=== PATIENT | female | born 1995 | race Caucasian/White ===

== ENCOUNTER → 2017-04-16 21:11 | Observation (INO) ==
--- NOTE | 2017-04-16 21:12 | OB/GYN Progress Note ---
Date of Encounter: 04/16/17 Time of Encounter: 21:09 - Assessment and Plan (1) 22 weeks gestation of Current Visit: Yes Status: Acute FHT reassuring (2) Round ligament pain Current Visit: Yes Status: Acute DIscharge home with precautions. Pt to follow up in office as scheduled or sooner if symptoms worsen. Comfort measures discussed at length. Subjective - Subjective Interval history: 22 year-old presenting at 22w6d gestation with c/o sharp, intermittent, lower abdominal pain that is worse on the right side than the left. Pt reports pain is sharp and is made worse with certain movements and with sneezing. She also reports some dysuria but was seen in urgent care today for it and her urine was normal. No other complaints including: fever, chills, flank pain, contractions, LOF, VB. Antepartum ROS: movement normal, no loss of fluid, no vaginal bleeding, no contractions Objective - Vital Signs Vital Signs: Intake and Output 04/16/17 04/16/17 04/16/17 07:59 15:59 23:59 Other: Weight 92 kg Patient Weight 04/16/17 23:59 Weight 92 kg - Exam FHR: auscultation normal Abdomen: Present: soft, gravid, tenderness (TTP in bilateral LQ over round ligaments, R>L) Uterus: Present: normal. Absent: tenderness (no fundal or suprapubic tenderness )
[2017-04-16 21:22] LABS: Amphetamine Screen,Urine Negative ng/mL (Cutoff=1000); Barbiturate Screen,Urine Negative ng/mL (Cutoff=200); Benzodiazepines Screen,Urine Negative ng/mL (Cutoff=200); Cannabinoid Screen,Urine Positive ng/mL (Cutoff = 50); Cocaine Screen,Urine Negative ng/mL (Cutoff= 300); Opiate Screen,Urine Negative ng/mL (Cutoff=300); Phencyclidine Screen,Urine Negative ng/mL (Cutoff=25)
== END | disposition home or self-care (01) ==
LOC: 1NENULAB
PROVIDERS: ADMIT Obstetrics & Gynecology; ATTEND Obstetrics & Gynecology

== ENCOUNTER → 2017-06-18 15:05 | Observation (INO) ==
--- NOTE | 2017-06-18 13:19 | OB/GYN Progress Note ---
Date of Encounter: 06/18/17 Time of Encounter: 13:15 - Assessment and Plan (1) 31 weeks gestation of Current Visit: Yes Status: Acute FHR 140-150's. Positive accels, no decels. Positive FM reported by patient. Negative ferning on slide review. No obvious fluid coming from cervix on pelvic exam. (2) Vaginal discharge during Current Visit: Yes Status: Acute Pelvic exam complete. Vaginosis swab sent to lab with results pending. Patient has appointment with Dr. Downing in the morning and will review results at that time. Patient agrees with plan. Qualifiers: Trimester: third trimester Qualified Code(s): O26.893 - Other specified related conditions, third trimester; N89.8 - Other specified noninflammatory disorders of vagina; N89.8 - Other specified noninflammatory disorders of vagina Subjective - Subjective Principal diagnosis: Loss of fluid Interval history: Patient is 22F at 31+6 with past medical history of well controlled gestational diabetes presents for c/o loss of fluid. Patient sees Dr. Downing. Patient states that over the past 2 weeks she has been having intermittent amounts of clear spotting in her underwear and today prior to arrival she had a gush of fluid that soaked her underpants but did not go through to her pants. Patient is positive for movement. States she has a history of vinh dey contractions since early on in her . Denies any abdominal pain, dysuria, hematuria, vaginal bleeding or discharge. Blood type is B+. Antepartum ROS: new complaints, loss of fluid, movement normal, no vaginal bleeding, no contractions Objective - Vital Signs Vital Signs: Intake and Output 06/17/17 06/18/17 06/18/17 23:59 07:59 15:59 Other: Weight 96.6 kg Patient Weight 06/18/17 23:59 Weight 96.6 kg - Exam FHR: auscultation normal, category 1 FHR comments: 140-150s FHR Auscultation: bilateral: normal Abdomen: Present: normal appearance, soft, gravid Uterus: Present: normal, firm. Absent: tenderness Cervical dilation: None Comments: Pelvic exam revealed scant milky white discarge. Normal appearing cervix, closed. No lesions.
[2017-06-18 13:28] LABS: Bilirubin,Urine Negative (Negative); Blood,Urine Negative (Negative); Clarity,Urine Cloudy (Clear); Color,Urine Yellow (Yellow); Glucose,Urine (UA) Normal (Normal); Ketones,Urine Negative (Negative); Leukocyte Esterase,Urine Small (Negative); Nitrite,Urine Negative (Negative); Protein,Urine Negative (Neg-Trace); Specific Gravity,Urine 1.014 (1.010-1.025); Urobilinogen,Urine Normal (Normal)
[2017-06-18 13:31] LABS: Bacteria,Urine None Seen per hpf (None-Few); Hyaline Casts,Urine None Seen per lpf (None-Few); RBC,Urine 0-3 per hpf (0-3); Squamous Epithelial Cell,Urine Many per lpf (None-Few)
[2017-06-18 13:48] LABS: Amphetamine Screen,Urine Negative ng/mL (Cutoff=1000); Barbiturate Screen,Urine Negative ng/mL (Cutoff=200); Benzodiazepines Screen,Urine Negative ng/mL (Cutoff=200); Cannabinoid Screen,Urine Negative ng/mL (Cutoff = 50); Cocaine Screen,Urine Negative ng/mL (Cutoff= 300); Opiate Screen,Urine Negative ng/mL (Cutoff=300); Phencyclidine Screen,Urine Negative ng/mL (Cutoff=25)
--- NOTE | 2017-06-18 14:52 | Discharge Summary ---
Date of Encounter: 06/18/17 Time of Encounter: 14:52 - Discharge Diagnosis (1) 31 weeks gestation of Priority: Primary Status: Acute Comments: admitted for observation (2) Vaginal discharge during Priority: Secondary Status: Acute Comments: Will call patient with results of vaginosis panel. Qualifiers: Trimester: third trimester Qualified Code(s): O26.893 - Other specified related conditions, third trimester; N89.8 - Other specified noninflammatory disorders of vagina; N89.8 - Other specified noninflammatory disorders of vagina - Discharge Medications Home Medications: Citalopram [CeleXA] 20 mg PO DAILY 10/16/16 [History] Tablet 1 tab PO DAILY 04/16/17 [History] Allergies/Adverse Reactions: 3 Allergy/AdvReac Type Severity Reaction Status Date / Time No Known Allergies Allergy Verified 04/16/17 21:01 Data Procedures and tests throughout hospitalization: Laboratory Tests 06/18/17 06/18/17 13:15 13:15 Urine Color Yellow Urine Clarity Cloudy A Urine pH 7.0 Ur Specific [place] 1.014 Urine Protein Negative Urine Glucose (UA) Normal Urine Ketones Negative Urine Blood Negative Urine Nitrite Negative Urine Bilirubin Negative Urine Urobilinogen Normal Ur Leukocyte Esterase Small H Urine Microscopic RBC 0-3 Urine Microscopic WBC 5-15 H Ur Squamous Epith Cells Many H Urine Bacteria None Seen Hyaline Casts None Seen Ur Culture Indicated? YES A Urine Opiates Screen Negative Ur Barbiturates Screen Negative Ur Phencyclidine Scrn Negative Ur Amphetamines Screen Negative U Benzodiazepines Scrn Negative Urine Cocaine Screen Negative U Marijuana (THC) Screen Negative Labs on day of discharge: Labs from last 24 hours 06/18/17 06/18/17 13:15 13:15 Urine Color Yellow Urine Clarity Cloudy A Urine pH 7.0 Ur Specific [place] 1.014 Urine Protein Negative Urine Glucose (UA) Normal Urine Ketones Negative Urine Blood Negative Urine Nitrite Negative Urine Bilirubin Negative Urine Urobilinogen Normal Ur Leukocyte Esterase Small H Urine Microscopic RBC 0-3 Urine Microscopic WBC 5-15 H Ur Squamous Epith Cells Many H Urine Bacteria None Seen Hyaline Casts None Seen Ur Culture Indicated? YES A Urine Opiates Screen Negative Ur Barbiturates Screen Negative Ur Phencyclidine Scrn Negative Ur Amphetamines Screen Negative U Benzodiazepines Scrn Negative Urine Cocaine Screen Negative U Marijuana (THC) Screen Negative Date of admission: 06/18/17 12:52 Primary care physician: PCP NONE - Patient Status Disposition: Home, Self-Care - Discharge Instructions Follow Up With: NONE,PCP [Primary Care Provider] - Josafat Downing MD [Partnered Physician] - - Diet and Activity Activity: increase activity as tolerated Diet: regular diet Hospital Course STAVE CUTTER Time Attestation: Total time spent providing and/or coordinating discharge services: Time Spent: Less than 30 minutes - VTE Reasons for not Prescribing Prophylaxis: Treatment not Indicated - Low risk for VTE - Attending Attestation I examined this patient and my medical decision-making was reviewed with the Resident Physician. I agree with the documented findings, disposition and treatment plan as described except to the extent set forth below. NENA Barton
[2017-06-18 15:02] LABS: Candida DNA Not Detected (Not Detect); Gardnerella DNA Not Detected (Not Detect); Trichomonas DNA Not Detected (Not Detect)
== END | disposition home or self-care (01) ==
LOC: 1NENULAB
PROVIDERS: ADMIT Obstetrics & Gynecology; ATTEND Obstetrics & Gynecology

== ENCOUNTER 2017-08-08 10:09 | Inpatient (IN) ==
[2017-08-08] MEDS ORDERED: Famotidine 20 MG/2 ML VIAL IVP ONE (10:40)
[2017-08-08] MEDS ORDERED: Ringers Solution, Lactated 1,000 ML IVC ONE (10:40)
[2017-08-08] MEDS ORDERED: Metoclopramide 10 MG/2 ML VIAL IVP ONE (10:40)
[2017-08-08] MEDS ORDERED: CeFAZolin Premix DUPLEX 2,000 MG/50 ML BAG IVPB ONE (10:40)
[2017-08-08] MEDS ORDERED: Ringers Solution, Lactated 1,000 ML ONE (10:44)
[2017-08-08] MEDS ORDERED: Ringers Solution, Lactated 1,000 ML IVC SCH ×2 (10:45→12:00)
[2017-08-08 11:04] LABS: Basophils % 0.3 %; Eosinophils # 0.1 K/mcL (0.0-0.6); Hematocrit 36.5 % (35.3-44.9); Hemoglobin 12.5 g/dL (11.5-15.4); Immature Granulocytes % 1.1 % (0-4); Lymphocytes # 1.3 K/mcL (0.6-4.6); Lymphocytes % 16.8 %; Mean Corpuscular HGB Conc 34.2 g/dL (31.6-35.5); Mean Corpuscular Hemoglobin 30.1 pg (28.0-33.3); Mean Platelet Volume 10.3 fL (9.4-12.4); Monocytes # 0.7 K/mcL (0.0-1.3); Monocytes % 9.2 %; Neutrophils # 5.7 K/mcL (1.6-8.9); Platelet Count 226 K/mcL (140-400); Red Blood Count 4.15 M/mcL (3.82-4.97); Red Cell Distribution Width 15.4 % (11.5-14.5); Segmented Neutrophils % 71.6 %
[2017-08-08 11:11] LABS: Amphetamine Screen,Urine Negative ng/mL (Cutoff=1000); Barbiturate Screen,Urine Negative ng/mL (Cutoff=200); Benzodiazepines Screen,Urine Negative ng/mL (Cutoff=200); Cannabinoid Screen,Urine Negative ng/mL (Cutoff = 50); Cocaine Screen,Urine Negative ng/mL (Cutoff= 300); Opiate Screen,Urine Negative ng/mL (Cutoff=300); Phencyclidine Screen,Urine Negative ng/mL (Cutoff=25)
--- NOTE | 2017-08-08 11:23 | OB/GYN History & Physical ---
Date of Encounter: 08/09/17 Time of Encounter: 11:18 Assessment and Plan (1) 39 weeks gestation of Current visit: Yes Status: Acute Patient's here for repeat . 39 weeks 1 day . Patient has been consented. (2) Marijuana use Current visit: Yes Status: Acute Drug testing completed on 04/01 showed positive marijuana. (3) Gestational diabetes Current visit: Yes Status: Acute Patient's glucose tolerance test abnormal. Diet controlled at home. She states normal glucose levels pre-and postprandial Qualifiers: Gestational diabetes mellitus control: diet-controlled Trimester: third trimester Qualified Code(s): O24.410 - Gestational diabetes mellitus in , diet controlled History of Present Illness HPI: Ms. Ignacio is a 22 year old female presenting to labor and delivery for scheduled repeat . Patient is currently 39 weeks and 1 day. She has had gestational diabetes at this and also marijuana usage. Patient states her diabetes is diet-controlled. Average morning glucose level in the mid 80s. Postprandial in the 90s unless she has sugary juices than it is elevated. Patient denies any headache, dizziness, chest pain or shortness of breath. Denies any recent fevers. Denies any vaginal discharge or vaginal bleeding. She states her first was completed due to emiliano breech presentation. Patient is group b strep negative. Patient is HIV and Treponema negative. Rubella immune. Patient's blood type is B+. Past Med Surg Social Fam HX - Past Medical History Medical history: no medical history Psychiatric history: anxiety, depression - Past Surgical History Surgical History: , other - Social History Smoking Status: Never smoker Smokeless Tobacco Status: No Alcohol use: none Drug use: none - Family History Mother Name: Ashly Age: 54 Family Member Ethnicity: Non- Living Status: Still Living Hx Family Cardiac Disorders: Yes (HTN) Hx Family Respiratory Disorders: No Hx Family Cancer: No Hx Family GI Disorders: No Hx Family Endocrine Disorder: Yes (Diabetes Type 2) Hx Family Neuromuscular Disorders: No Hx Family Neurologic Disorders: No Hx Family HEENT Disorders: No Hx Family Autoimmune Disorders: No Obstetrical History - Pregnancies : 2 Para: 1 Term: 1 : 0 Ab's: 0 Livin Medications and Allergies Citalopram [CeleXA] 20 mg PO DAILY 10/16/16 [History] Tablet 1 tab PO DAILY 04/16/17 [History] 3 Allergy/AdvReac Type Severity Reaction Status Date / Time No Known Allergies Allergy Verified 04/16/17 21:01 Review of System OB All systems PM: reviewed and no additional remarkable complaints except as stated Exam - Constitutional Constitutional: well developed, well nourished, no acute distress, obese - HEENT HEENT: Normocephaly, Mucus Membranes Moist - Neck Neck exam: normal inspection - Lungs Respiratory exam: CTAB - Cardiovascular Cardiovascular exam: RRR - Abdomen Abdomen: Present: bowel sounds normal, gravid, non tender - Extremities Extremities exam: normal inspection - Uterus Uterus exam: Present: normal contour Results Result Diagrams: 08/08/17 10:40 Abnormal lab results RDW 15.4 % (11.5-14.5) H 08/08/17 10:40 All other labs normal. - VTE Reasons for not Prescribing Prophylaxis: Treatment not Indicated - Low risk for VTE
--- NOTE | 2017-08-08 11:59 | Anesthesia Evaluation PreOp ---
Date of Encounter: 08/08/17 Time of Encounter: 11:56 - Past History Planned Operation: repeat csection Cardiac History: Denies any Significant Hx Pulmonary History: Denies Any Significant HX PSYCHIATRY PHYSICIAN History: Denies Any Significant HX Other Medical History: Diabetes Type II (gestational diabetes, diet controlled) , GERD, Other (anxiety, depression) Anesthesia History: No Prior Anesthetic Complications (previous csection, breast lumpectomy), Past Anesthesia : Yes Alcohol Use: none Drug use: none Medications and Allergies Citalopram [CeleXA] 20 mg PO DAILY 10/16/16 [History] Tablet 1 tab PO DAILY 04/16/17 [History] 3 Allergy/AdvReac Type Severity Reaction Status Date / Time No Known Allergies Allergy Verified 04/16/17 21:01 - Meds/Allergy Pre-op Review Medications Reviewed: Yes Allergies Reviewed: Yes Beta Blockers on Current Med List: No Anesthesia Results - Labs 08/08/17 10:40 Anesthesia Exam BP 129/77 P 123 R 16 T 97.0 Height: 5'1" Weight: 101.7kg NPO (# of Hours): 14 Pain Scale: 0 Pain Scale Used: Numeric (1 - 10) - HEENT Pupil (Motor): Pupils equal Mallampati: II Teeth: Normal Oral Opening: Greater than 3 - PSYCHIATRY PHYSICIAN LOC: Oriented PSYCHIATRY PHYSICIAN Motor: Normal RUE, Normal LUE, Normal RLE, Normal LLE, Normal Face PSYCHIATRY PHYSICIAN Sensory: Normal: RUE, LUE, RLE, LLE, Face - Cardiac Rhythm: Regular Murmur: None JVD: No Carotid Bruit: No - Pulmonary Breath Sounds: bilateral Clear Respiratory Effort: Symmetrical Anesthesia Assess/Plan ASA Score: 2 Modified Perla Scale for Level of Consciousness: Cooperative, oriented, and tranquil Anesthetic Plan: Regional Autologous Blood: No Monitoring Plan: Standard Monitors Recovery Plan: PACU
[2017-08-08] MEDS ORDERED: *HR* HYDROmorphone (PF) 1 MG/ML SYRINGE IVP PRN (12:00)
[2017-08-08] MEDS ORDERED: Dexamethasone 4 MG/ML VIAL IVP ONE (12:00)
[2017-08-08] MEDS ORDERED: *HR* Meperidine 25 MG/ML SYRINGE IVP PRN (12:00)
[2017-08-08] MEDS ORDERED: Ondansetron 4 MG/2 ML VIAL IVP ONE (12:00)
[2017-08-08] MEDS ORDERED: Morphine Sulfate/PF 5mg/10mL Vial ONE (12:03)
[2017-08-08] MEDS ORDERED: *HR* Oxytocin 10 UNIT/ML VIAL IM ONE (12:04)
[2017-08-08] MEDS ORDERED: Ondansetron 4 MG/2 ML VIAL ONE (12:04)
[2017-08-08] MEDS ORDERED: Dexamethasone 4 MG/ML VIAL ONE (12:04)
[2017-08-08] MEDS ORDERED: EPHEDrine 50 MG/ML VIAL ONE (12:27)
--- NOTE | 2017-08-08 12:54 | Anesthesia Procedures ---
Date of Encounter: 08/08/17 Time of Encounter: 12:19 Procedures: Anesthesia - Epidural/Spinal Patient ID/Chart reviewed: Yes Patient examined: Yes OB Eval: Gestational age: 39 OB Eval: : 2 OB Eval: Hx Para: 1 Consent Obtained: Yes Supplemental Oxygen: None/Room Air Site Prep: Aseptic Technique, Sterile prep and drape, Povidone-Iodine 1% Patient position: upright Local Anesthetic: Lidocaine 1% Amount of Local Anesthetic used: 3 Interspace Used: L3-L4 Loss of Resistance (THUY): No Blood: No CSF: Yes Paresthesia: No Spinal Needle Gauge: 25 Spinal Dose: Bupivicaine 0.75% 1.4ml with morphine 250mcg Procedure: Intrathecal dose administered 1st pass in upright position without any immediate noted complications. VSS Vitals + FHT's: See anesthesia record
[2017-08-08] MEDS ORDERED: Oxytocin 20 units/ LR 1000 mL 20 UNIT/1,000 ML BAG IVC ONE (13:37)
[2017-08-08] MEDS ORDERED: Simethicone 80 MG TAB.CHEW PO PRN (13:38)
[2017-08-08] MEDS ORDERED: Sennosides 8.6 MG TABLET PO PRN (13:38)
[2017-08-08] MEDS ORDERED: Metoclopramide 10 MG/2 ML VIAL IVP PRN (13:38)
[2017-08-08] MEDS ORDERED: Ondansetron 4 MG/2 ML VIAL IVP PRN (13:38)
--- NOTE | 2017-08-08 13:43 | OB/GYN Procedure Note ---
<Beena Morris - Last Filed: 08/08/17 13:41> Section - Date of procedure: 08/08/17 Preop diagnosis: desires repeat Post-op diagnosis: same Procedure: section, repeat low transverse Surgeon: Josafat Downing Estimated blood loss (cc): 1,000 Was there an practice assistant present: Yes Tablet Tester: Beena Morris Anesthesiologist: Salomón Marinelli Anesthesia Type: Spinal section complications: none Disposition: Post floor Specimens: Placenta - (s) Infant A Delivery Date: 08/08/17 Infant Delivery Time: 12:41 Presentation: vertex Position: ASHLEE Gender: Female Viability: Viable Pounds: 8 Ounces: 8 Gram Weight: 3.85 kg at 1 minute: 7 at 5 minutes: 9 Shoulder Dystocia: not encountered Placenta: complete extraction <Josafat Downing - Last Filed: 08/09/17 04:59> Section - Narrative Narrative: Patient was taken to the operating room. After satisfactory anesthesia was achieved, patient was placed in supine position, Simons catheter inserted, prepped and draped in usual manner. After appropriate timeout was obtained, the abdomen was entered through standard Maylard incision. The Manuela retractor was placed. The peritoneum overlying the lower uterine segment was incised in the U-shaped fashion. The uterine cavity was entered sharply and extended laterally. Membranes ruptured yielding clear fluid. With fundal pressure, the head was delivered. The remainder of the infant was delivered. The umbilical cord was double clamped and cut and infant was handed to nursery staff for further evaluation. Placenta was removed. Uterus closed in a single layer using 0 Monocryl. After assurance of hemostasis, the abdomen was closed in fashion using 0 Vicryl fascia and 3-0 Monocryl in the skin. Sterile dressing was applied. Patient did well and was taken to recovery room in satisfactory condition. Counts were correct.
[2017-08-08] MEDS ORDERED: *HR* Meperidine 50 MG/ML SYRINGE IVP PRN (13:45)
[2017-08-08] MEDS: Oxytocin 20 units/ LR 1000 mL 20 UNIT/1,000 ML BAG IVC SCH (13:51)
--- NOTE | 2017-08-08 14:50 | Anesthesia Evaluation Post Op ---
Date of Encounter: 08/08/17 Time of Encounter: 14:49 - Vital Signs Vital Signs: BP 154/97 P 115 R 16 T 98.7 spo2 97 - Lungs Lungs: Clear Ascult./Percussion - Airway Airway: Non-obstructed - Cardiovascular Regular Rate - Mental Status Mental Status: Alert & Oriented, Answers Appropriately - Pain Pain Scale: 0 Pain Scale used: Numeric (1 - 10) - Nausea Vomiting Nausea Vomiting: Not Present - Hydration Hydration: Ice chips, Simons catheter - Discharge PostOp Status: Transfer Patient to floor
[2017-08-09] MEDS: Oxytocin 20 units/ LR 1000 mL 20 UNIT/1,000 ML BAG IVC SCH (00:03)
[2017-08-09] MEDS: *HR* OxyCODONE/APAP 5/325 TABLET PO PRN ×3 (00:04→19:45)
[2017-08-09 05:07] LABS: Basophils % 0.4 %; Eosinophils # 0.1 K/mcL (0.0-0.6); Eosinophils % 0.7 %; Hematocrit 30.5 % (35.3-44.9); Immature Granulocytes % 0.8 % (0-4); Lymphocytes # 1.8 K/mcL (0.6-4.6); Lymphocytes % 20.7 %; Mean Corpuscular HGB Conc 32.5 g/dL (31.6-35.5); Mean Corpuscular Hemoglobin 29.6 pg (28.0-33.3); Mean Platelet Volume 10.1 fL (9.4-12.4); Monocytes # 0.7 K/mcL (0.0-1.3); Monocytes % 8.5 %; Neutrophils # 5.9 K/mcL (1.6-8.9); Platelet Count 198 K/mcL (140-400); Red Blood Count 3.35 M/mcL (3.82-4.97); Red Cell Distribution Width 15.2 % (11.5-14.5); Segmented Neutrophils % 68.9 %
[2017-08-09 05:15] LABS: Hemoglobin 9.9 g/dL (11.5-15.4)
[2017-08-09] MEDS: Ibuprofen 600 MG TABLET PO PRN ×3 (08:02→23:25)
[2017-08-09] MEDS: Prenatal Vit/FA 1 EACH TABLET PO SCH (08:02)
--- NOTE | 2017-08-09 09:24 | OB/GYN Progress Note ---
Date of Encounter: 08/09/17 Time of Encounter: 09:21 - Assessment and Plan (1) delivery delivered Current Visit: Yes Status: Acute Patient is meeting post-op day one milestones. Anticipate d/c home post-op day 2. (2) Breast feeding status of mother Current Visit: Yes Status: Acute Subjective - Subjective Patient reports: appetite normal, voiding normally, pain well controlled, ambulating normally : doing well Objective - Vital Signs Latest vital signs: Vital Signs Temp Pulse Pulse Resp BP Pulse Ox 08/09/17 03:00 98.4 F 92 18 131/88 99 08/09/17 00:22 98.4 F 107 16 139/89 98 08/08/17 20:00 100 F H 110 18 138/90 99 08/08/17 19:01 98.3 F 115 16 130/81 97 08/08/17 19:00 98.7 F 99 115 16 142/94 98 08/08/17 18:05 98.4 F 101 16 147/81 98 08/08/17 17:00 98.4 F 101 100 16 147/81 98 08/08/17 16:30 98.4 F 106 100 16 131/75 98 08/08/17 16:05 98.4 F 90 90 16 151/87 97 Intake and Output 08/08/17 08/09/17 08/09/17 23:59 07:59 15:59 Intake Total 1000 / 1000 800 / 800 Output Total 1400 / 1400 1000 / 1000 Balance -400 / -400 -200 / -200 Intake: IV Fluids 1000 / 1000 Pitocin 20 unit In 1,000 ml @ 1000 / 1000 125 mls/hr IVC .Q8H [facility] Rx#: [id number] Oral 800 / 800 Output: Urine 200 / 200 Catheter 1400 / 1400 800 / 800 Other: Weight 96.5 kg 97.7 kg Patient Weight 08/09/17 23:59 Weight 97.7 kg - Exam Lungs: bilateral: normal Chest: Normal S1, Normal S2 Extremities: Present: normal Abdomen: Present: normal appearance, soft, tenderness (Appropriately tender) Incision: Present: dry, intact, dressed Uterus: Present: normal - Labs Labs: Laboratory Results - last 24 hr 08/08/17 08/08/17 08/09/17 10:40 10:40 04:44 WBC 8.0 8.5 RBC 4.15 3.35 L Hgb 12.5 9.9 L D Hct 36.5 30.5 L MCV 88.0 91.0 MCH 30.1 29.6 MCHC 34.2 32.5 RDW 15.4 H 15.2 H Plt Count 226 198 MPV 10.3 10.1 Immature Gran % 1.1 0.8 Seg Neutrophils % 71.6 68.9 Lymphocytes % 16.8 20.7 Monocytes % 9.2 8.5 Eosinophils % 1.0 0.7 Basophils % 0.3 0.4 Neutrophils # 5.7 5.9 Lymphocytes # 1.3 1.8 Monocytes # 0.7 0.7 Eosinophils # 0.1 0.1 Basophils # 0.0 0.0 Urine Opiates Screen Negative Ur Barbiturates Screen Negative Ur Phencyclidine Scrn Negative Ur Amphetamines Screen Negative U Benzodiazepines Scrn Negative Urine Cocaine Screen Negative U Marijuana (THC) Screen Negative
[2017-08-10] MEDS: Ibuprofen 600 MG TABLET PO PRN (05:27)
[2017-08-10] MEDS: *HR* OxyCODONE/APAP 5/325 TABLET PO PRN (08:11)
[2017-08-10] MEDS: Prenatal Vit/FA 1 EACH TABLET PO SCH (08:11)
[2017-08-10 08:51] VITALS: BP 129/88
--- NOTE | 2017-08-10 10:46 | Discharge Summary ---
Date of Encounter: 08/10/17 Time of Encounter: 10:43 - Discharge Diagnosis (1) delivery delivered Priority: Primary Status: Acute Comments: Pt states feeling well, tolerate po diet, passing flatus desires discharge. - Discharge Medications Prescriptions: OxyCODONE/APAP 5/325 [Percocet 5/325 MG] 1 each PO Q4HR PRN #20 tablet PRN Reason: Moderate pain 4-6 Ibuprofen [Motrin] 600 mg PO Q6HR PRN #60 tablet PRN Reason: Cramping Citalopram [CeleXA] 20 mg PO DAILY #60 tablet Docusate [Colace] 100 mg PO BID #60 capsule Ferrous Sulfate 325 mg PO DAILY #60 tablet Home Medications: Tablet 1 tab PO DAILY 04/16/17 [History] Citalopram [CeleXA] 20 mg PO DAILY #60 tablet 08/10/17 [Rx] Docusate [Colace] 100 mg PO BID #60 capsule 08/10/17 [Rx] Ferrous Sulfate 325 mg PO DAILY #60 tablet 08/10/17 [Rx] Ibuprofen [Motrin] 600 mg PO Q6HR PRN #60 tablet 08/10/17 [Rx] OxyCODONE/APAP 5/325 [Percocet 5/325 MG] 1 each PO Q4HR PRN #20 tablet 08/10/17 [Rx] Vit/FA 1 each PO DAILY tablet 08/10/17 [Rx] Simethicone [Gas-X] 80 mg PO TID PRN tab.chew 08/10/17 [Rx] Allergies/Adverse Reactions: 3 Allergy/AdvReac Type Severity Reaction Status Date / Time No Known Allergies Allergy Verified 04/16/17 21:01 Data Procedures and tests throughout hospitalization: Laboratory Tests 08/08/17 08/08/17 08/09/17 10:40 10:40 04:44 WBC 8.0 8.5 RBC 4.15 3.35 L Hgb 12.5 9.9 L D Hct 36.5 30.5 L MCV 88.0 91.0 MCH 30.1 29.6 MCHC 34.2 32.5 RDW 15.4 H 15.2 H Plt Count 226 198 MPV 10.3 10.1 Immature Gran % 1.1 0.8 Seg Neutrophils % 71.6 68.9 Lymphocytes % 16.8 20.7 Monocytes % 9.2 8.5 Eosinophils % 1.0 0.7 Basophils % 0.3 0.4 Neutrophils # 5.7 5.9 Lymphocytes # 1.3 1.8 Monocytes # 0.7 0.7 Eosinophils # 0.1 0.1 Basophils # 0.0 0.0 Urine Opiates Screen Negative Ur Barbiturates Screen Negative Ur Phencyclidine Scrn Negative Ur Amphetamines Screen Negative U Benzodiazepines Scrn Negative Urine Cocaine Screen Negative U Marijuana (THC) Screen Negative Date of admission: 08/08/17 10:09 Primary care physician: Nicol Caicedo CNP Discharging clinician: Laura Carias Anticipated date of discharge: 08/10/17 - Patient Status Disposition: Home, Self-Care Condition: Good Functional capacity at discharge: independent ambulation Overall status at discharge: patient is back to baseline - Discharge Instructions Follow Up With: Nicol Caicedo CNP [Primary Care Provider] - - Diet and Activity Activity: resume usual activities as tolerated Diet: regular diet Hospital Course Reason for admission: section Delivery: section Other procedures: none complications: none Discharge diagnosis: IUP at term delivered baby: male Hospital course: Section - Date of procedure: 08/08/17 Preop diagnosis: desires repeat Post-op diagnosis: same Procedure: section, repeat low transverse Surgeon: Josafat Downing Estimated blood loss (cc): 1,000 Was there an care management assistant present: Yes Director Card: Beena Morris Anesthesiologist: Salomón Marinelli Anesthesia Type: Spinal section complications: none Disposition: Post floor Specimens: Placenta - (s) Infant A Delivery Date: 08/08/17 Delivery Time: 12:41 Presentation: vertex Position: ASHLEE Gender: Female Viability: Viable Pounds: 8 Ounces: 8 Gram Weight: 3.85 kg at 1 minute: 7 at 5 minutes: 9 Shoulder Dystocia: not encountered Placenta: complete extraction <Josafat Downing - Last Filed: 08/09/17 04:59> Section - Narrative Narrative: Patient was taken to the operating room. After satisfactory anesthesia was achieved, patient was placed in supine position, Simons catheter inserted, prepped and draped in usual manner. After appropriate timeout was obtained, the abdomen was entered through standard Maylard incision. The Manuela retractor was placed. The peritoneum overlying the lower uterine segment was incised in the U-shaped fashion. The uterine cavity was entered sharply and extended laterally. Membranes ruptured yielding clear fluid. With fundal pressure, the head was delivered. The remainder of the was delivered. The umbilical cord was double clamped and cut and was handed to nursery staff for further evaluation. Placenta was removed. Uterus closed in a single layer using 0 Monocryl. After assurance of hemostasis, the abdomen was closed in fashion using 0 Vicryl fascia and 3-0 Monocryl in the skin. Sterile dressing was applied. Patient did well and was taken to recovery room in satisfactory condition. Counts were correct. Stable and appropriate for discharge, OAARS reviewed. Time Attestation: Total time spent providing and/or coordinating discharge services: Time Spent: Less than 30 minutes Exam - Constitutional Vitals: Temp Pulse Resp BP Pulse Ox 98.0 F 102 16 129/88 98 08/10/17 07:55 08/10/17 07:55 08/10/17 07:55 08/10/17 07:55 08/10/17 07:55 General appearance IM: A&O X 3 - Respiratory Respiratory exam: Present: CTAB - Cardiovascular Cardiovascular exam IM: Present: RRR - GI/Abdominal GI/Abdominal exam IM: normal bowel sounds, soft Incision: dressed ([place]) - Uterine Tone: Firm Uterus Position: At Umbilicus - Extremities Exam Extremities exam IM: Present: normal capillary refill, normal inspection - Neurological Exam Neurological exam: normal gait, oriented X3 - Psychiatric Additional comments: Reports good mood.
== END 2017-08-10 11:30 | disposition home or self-care (01) | DRG 540 ==
LOC: 1NENULAB 10:09 → 1NENUOBS 15:57
PROVIDERS: ADMIT Obstetrics & Gynecology; ATTEND Obstetrics & Gynecology